=== PATIENT | male | born 1940 | race Caucasian/White ===

== ENCOUNTER 2017-09-13 13:51 | Outpatient (CLI) | payer MEDICARE, BC | END 2017-09-13 13:52 | disposition home or self-care (01) | LOC: BICULT 13:51 | PROVIDERS: ATTEND Family Medicine | DX: E04.1 Nontoxic single thyroid nodule (principal) | CPT/HCPCS: 76536 ==

== ENCOUNTER 2018-01-02 15:26 | Outpatient (CLI) | payer MEDICARE, BC ==
--- NOTE | 2018-01-02 16:49 | RAD ---
RIGHT KNEE FOUR VIEWS: HISTORY: Knee pain. COMPARISON: None. FINDINGS: No acute fracture or malalignment. Soft tissues are unremarkable. Moderate vascular calcifications. No significant knee joint effusion. IMPRESSION: No acute abnormality. POS: [facility]
== END 2018-01-02 15:27 | disposition home or self-care (01) ==
LOC: TBSIIMAG 15:26
PROVIDERS: ATTEND Neurological Surgery
DX: M25.561 Pain in right knee (principal)

== ENCOUNTER 2018-01-19 08:50 | Outpatient (CLI) | payer MEDICARE, BC ==
--- NOTE | 2018-01-19 10:31 | MRI ---
NONCONTRAST MRI LUMBAR SPINE: DATE: 01/19/2018. HISTORY: Lumbar radiculopathy. The patient complains of right lower extremity pain with pain extending from t he right hip to the foot for several weeks. COMPARISON: 01/15/2007. There is incomplete visualization of the T10 and T11 vertebral bodies, there is a suggestion of fusio n of these vertebral bodies. There are multilevel degenerative changes. A few scattered Schmorl's n odes are seen in the superior end plates of several lumbar vertebral bodies. The conus medullaris is normal in appearance and terminates at the level of the L1 vertebral body. T11-12 level: There is a mild disk-osteophyte complex which results in mild effacement of the ventra l subarachnoid space. There is mild bilateral neural foraminal narrowing. T12-L1 level: Thee is a mild broad-based disk-osteophyte complex present. This narrows the ventral subarachnoid space with mild bilateral neural foraminal narrowing. L1-2 level: There are end plate degenerative changes. There is loss of the intervertebral disk spac e height. There is a broad-based disk-osteophyte complex and mild facet degenerative changes. There is generalized mild narrowing of the central spinal canal with moderate bilateral neural foraminal n arrowing. L2-3 level: There is loss of intervertebral disk space height. There is a broad-based disk-osteophy te complex and mild facet degenerative changes present. There is generalized mild to moderate narrow ing of the central spinal canal not significant pressed from prior exam. There is moderate bilateral neural foraminal narrowing also stable from prior exam. L3-4 level: There is loss of the intervertebral disk height. There is a broad-based disk-osteophyte complex and facet hypertrophic changes. There is moderate narrowing of the central spinal canal. C entral canal narrowing does appear mildly progressed from the prior exam. There is moderate bilatera l neural foraminal narrowing. L4-5 level: There is loss of intervertebral disk heights with mild end plate degenerative changes. There is a broad-based disk-osteophyte complex present with a central disk protrusion. This disk pro trusion was not present on the prior study and results in severe narrowing of the central spinal seng l. There are facet hypertrophic changes and ligamentous thickening at this level with resultant mode rate bilateral neural foraminal narrowing greater on the left. L5-S1 level: There is a mild broad-based disk-osteophyte complex, but this does not narrow the theca l sac, and the neural foramina are patent. Several subcentimeter, increased T2 weighted signal intensity lesions in each kidney which are diffic ult to adequately characterize due to very small size but statistically likely represent cysts. Ther e is a larger 4.5 cm incompletely imaged increased T2 weighted signal intensity cystic lesion at the inferior pole right kidney likely representing a large renal cyst, but given incomplete visualization , followup renal sonogram is recommended to confirm that this does represent a renal cyst. IMPRESSION: 1. Multilevel degenerative changes throughout the lumbar spine with multilevel degrees of mild and m oderate neural foraminal narrowing. 2. Interval development of a central disk protrusion at the L4-5 level resulting in severe narrowing of the central spinal canal. 3. Several subcentimeter, increased T2 weighted signal intensity lesions in each kidney which are di fficult to adequately characterize due to very small size but statistically likely represent cysts. Larger incompletely imaged increased T2 weighted signal intensity cystic lesion right kidney likely r epresenting a large renal cyst, but given incomplete visualization, followup renal sonogram is recomm ended to confirm that this does represent a renal cyst. POS: [facility]
== END 2018-01-19 08:51 | disposition home or self-care (01) ==
LOC: BICMRI 08:50
PROVIDERS: ATTEND Neurological Surgery
DX: M47.26 Other spondylosis with radiculopathy, lumbar region (principal); M48.061 Spinal stenosis, lumbar region without neurogenic claudication; M51.16 Intervertebral disc disorders with radiculopathy, lumbar region
CPT/HCPCS: 72148

== ENCOUNTER 2019-07-31 10:27 | Outpatient (CLI) | payer MEDICARE, BC ==
[~2019-07-31 10:27] MED LIST: Iopamidol 370 76% 100 ML VIAL ONE
--- NOTE | 2019-07-31 15:14 | CT ---
CT ANGIOGRAM OF GREAT VESSELS OF THE NECK WITH IV CONTRAST AND 3D MIP RECONSTRUCTIONS: PROVIDED CLINICAL HISTORY: Neck mass, history of CVA. FINDINGS: There is a common origin of the innominate and left common carotid arteries. There is no significant stenosis involving the great vessel origins at the arch. There is occlusion of the right internal c arotid artery at its origin, without subsequent opacification involving the extracranial or intracran ial segments to the level of the supraclinoid ICA which is opacified presumably by collateral flow. There is atherosclerotic plaque seen involving the left carotid bulb and left proximal internal carot id artery. This results in approximately 50% stenosis. The vertebral arteries appear patent. There is a hyperdense mass present in the midline of the neck at the interval between the hyoid and t hyroid cartilage. This measures about 7.4 cm in transverse dimension and about 1.6 cm in the cranioc audal dimension. The density of this mass is similar to the thyroid gland. The parotid, thyroid, and submandibular glands appear unremarkable. There is no evidence for regiona l lymph node enlargement. The visualized aerodigestive tract appears unremarkable. The visualized l frank apices appear clear. Cervical degenerative changes are seen without concerning lytic or blastic lesion. IMPRESSION: 1. 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 This could be confirmed with I-123 examination. 2. Right internal carotid artery occlusion. 3. 50% origin stenosis left internal carotid artery. POS: [facility]
== END 2019-07-31 10:28 | disposition home or self-care (01) ==
LOC: CT 10:27
PROVIDERS: ATTEND Internal Medicine Cardiovascular Disease
DX: R09.89 Other specified symptoms and signs involving the circulatory and respiratory systems (principal); Z86.73 Personal history of transient ischemic attack (TIA), and cerebral infarction without residual deficits; I65.23 Occlusion and stenosis of bilateral carotid arteries; R22.1 Localized swelling, mass and lump, neck
CPT/HCPCS: 70498; 82565; Q9967

== ENCOUNTER 2022-04-06 09:17 | Outpatient (CLI) | payer MEDICARE, BC | END 2022-04-06 09:18 | disposition home or self-care (01) | LOC: TBSIIMAG 09:17 | PROVIDERS: ATTEND Neurological Surgery | DX: M51.16 Intervertebral disc disorders with radiculopathy, lumbar region (principal); M48.062 Spinal stenosis, lumbar region with neurogenic claudication; M47.26 Other spondylosis with radiculopathy, lumbar region; M47.27 Other spondylosis with radiculopathy, lumbosacral region; M47.25 Other spondylosis with radiculopathy, thoracolumbar region | CPT/HCPCS: 72148 ==